=== PATIENT | female | born 2000 | race Caucasian/White ===

== ENCOUNTER 2020-06-17 18:03 | Emergency (ER) | payer MEDICAID, SELFPAY ==
[2020-06-17 18:05] VITALS: BP 114/58; PULSE 69; RESP 15; TEMP 36.1; O2SAT 97; BMI 21.5
--- NOTE | 2020-06-17 18:17 | ED.DCSUM_ITS ---
- ER Visit Summary Date of Service: 06/17/20 Chief Complaint: [Dental pain] History of Present Illness: The patient is a 19 F [presents to the emergency department with complaint of pain in her teeth that she has had for the last 2 days. Patient has chronic dental issues and she is scheduled next week to have all her teeth extracted. Patient denies any fevers. Patient states that her poor dentition's related to [id number] pregnancies and not keeping up with her prenatals and lack of dental hygiene. She denies any methamphetamine or illicit drug use other than marijuana. Patient otherwise has no medical history. She states that she has been using Orajel and ibuprofen and garlic and nothing seems to help.] Physical Examination: [HEENT-PERRLA, EOMI. Cranial nerves II through XII grossly intact. TMs clear. Mucous membranes moist. No adenopathy. Titian- patient has multiple broken and carried teeth diffusely. No obvious dental abscess noted. Teeth upper and lower left more tender than right. Cardiovascular-regular rate and rhythm without murmur or ectopy Lungs-clear to auscultation, chest wall stable without crepitus or subcu emphysema Abdomen-normoactive bowel sounds, soft, nontender, no rebound or rigidity, no peritoneal signs. Extremities-intact ?4, normal range of motion, normal pulses, atraumatic] Test Results: [None indicated] Emergency Department Course and Treatment: [Patient was started on clindamycin] Treatment Plan: [We will be treated with clindamycin and a few [place] for pain. She is advised to keep her appointment with her dentist this week.] Disposition: [Discharged home in stable condition] Impression: [Dental pain] This note was generated with [employer] dictation software. It may contain incorrect words, spelling, and punctuation that were not noted in review of the chart prior to signing ED Disposition - Plan for ED Patient: Referrals: [facility],Out of [Primary Care Provider] -
--- NOTE | 2020-06-17 18:19 | DCINST.ED_ITS ---
ED Disposition - Plan for ED Patient: Instructions: ED Dental Pain Prescriptions: Clindamycin HCl [Cleocin] 300 mg PO Q6H #40 cap Prescription Printed Hydrocodone Bitart/Apap 5-325 [[place] 5MG-325MG] 1 tab PO Q4H PRN PRN 2 Days #10 tab PRN Reason: Pain Prescription Printed Referrals: [facility],Out of [Primary Care Provider] - Additional Instructions: see your dentist
[2020-06-17 19:04] VITALS: RESP 16
== END 2020-06-17 19:08 | disposition home or self-care (01) ==
LOC: ED 18:38
PROVIDERS: Emergency Provider Emergency Medicine
DX: K08.89 Other specified disorders of teeth and supporting structures (principal); Z72.0 Tobacco use; F12.10 Cannabis abuse, uncomplicated
CPT/HCPCS: 99282

== ENCOUNTER 2020-09-17 21:02 | Emergency (ER) | payer MEDICAID, SELFPAY ==
[2020-09-17 21:04] VITALS: BP 113/66; PULSE 68; RESP 18; TEMP 36.1; O2SAT 97; BMI 25.4
== END 2020-09-17 21:40 ==
LOC: ED 21:52
DX: B85.0 Pediculosis due to Pediculus humanus capitis (principal)